=== PATIENT | female | born 1940 | race Caucasian/White ===

== ENCOUNTER → 2017-08-26 | Outpatient (CLI) | payer MEDICARE ==
--- NOTE | 2017-08-26 13:51 | MM ---
Reason for exam: screening (asymptomatic). Last mammogram was performed 1 year ago. History: Patient is postmenopausal. Benign excisional biopsy of the left breast, April 29, 1997. Took estrogen for 7 years beginning at age 59. Took progesterone for 7 years beginning at age 59. Physical Findings: A clinical breast exam by your physician is recommended on an annual basis and results should be correlated with mammographic findings. MG 3D Screening Mammo W/Cad Bilateral CC and MLO view(s) were taken. Prior study comparison: August 24, 2016, bilateral MG 3d screening mammo w/cad. August 22, 2015, bilateral MG screening mammo w CAD. August 19, 2014, bilateral MG screening mammo w CAD. There are scattered fibroglandular densities. There is no discrete abnormality. ASSESSMENT: Negative, BI-RAD 1 RECOMMENDATION: Routine screening mammogram of both breasts in 1 year.
== END | disposition home or self-care (01) ==
LOC: RADMAMWWP 09:22
PROVIDERS: ATTEND Obstetrics & Gynecology
DX: Z12.31 Encounter for screening mammogram for malignant neoplasm of breast (principal)
CPT/HCPCS: 77063; G0202

== ENCOUNTER → 2018-08-27 | Outpatient (CLI) | payer MEDICARE ==
--- NOTE | 2018-08-27 12:32 | BD ---
EXAMINATION TYPE: Axial Bone Density DATE OF EXAM: 08/27/2018 COMPARISON: 10/13/2012 CLINICAL HISTORY: 78-year-old female postmenopausal screening, disorder of bone density Height: 63.5 IN Weight: 182 LBS FRAX RISK QUESTIONS: History of Fracture in Adulthood: YES LEFT FOREARM AGE 66 RISK FACTORS HISTORY OF: Active: YES Postmenopausal woman: AGE 55 Take estrogen and/or progesterone medications: NOT NOW How long: TOOK FROM AGE [age] Lost more than 2 inches in height since high school: YES 2.5" MEDICATIONS: Additional Medications: CALCIUM, VIT D3, CENTRUM SILVER, ASCAL, HCTZ, PRULUENT INJECTION EVERY 2 WEEK S EXAM MEASUREMENTS: Bone mineral densitometry was performed using the [employer] System. Bone mineral density as measured about the Lumbar spine is: ----- L1-L4(G/cm2): 1.252 T Score Values are as follows: ----- L2: -0.8 ----- L3: 1.9 ----- L4: 1.1 ----- L1-L4: 0.6 Bone mineral density has: Increased 1.8% since study of: 10/13/2012 Bone mineral density about the R hip (g/cm2): 0.950 Bone mineral density about the L hip (g/cm2): 0.900 T Score values are as follows: -----R Neck: -0.6 -----L Neck: -1.0 -----R Total: -0.6 -----L Total: -0.5 Bone mineral density has: Decreased -6.6% since study of: 10/13/2012 IMPRESSION: Normal (Values between +1 and -1 indicate normal bone mass). However, note that measurements border o n osteopenia at the left hip. Consider repeating this study in 5 years or sooner if there is some new clinical indication. NOTE: T-SCORE=SD OF THE YOUNG ADULT MEAN.
--- NOTE | 2018-08-28 12:36 | MM ---
Reason for exam: screening (asymptomatic). Last mammogram was performed 1 year ago. History: Patient is postmenopausal. Benign excisional biopsy of the left breast, April 29, 1997. Took estrogen for 7 years beginning at age 59. Took progesterone for 7 years beginning at age 59. Physical Findings: A clinical breast exam by your physician is recommended on an annual basis and results should be correlated with mammographic findings. MG 3D Screening Mammo W/Cad Bilateral CC and MLO view(s) were taken. XCCL view(s) were taken of the right breast. Prior study comparison: August 26, 2017, bilateral MG 3d screening mammo w/cad. August 24, 2016, bilateral MG 3d screening mammo w/cad. No significant changes when compared with prior studies. ASSESSMENT: Benign, BI-RAD 2 RECOMMENDATION: Routine screening mammogram of both breasts in 1 year.
== END | disposition home or self-care (01) ==
LOC: RADMAMWWP 08:37
PROVIDERS: ATTEND Family Medicine
DX: Z12.31 Encounter for screening mammogram for malignant neoplasm of breast (principal); M85.852 Other specified disorders of bone density and structure, left thigh
CPT/HCPCS: 77063; 77067; 77080

== ENCOUNTER → 2018-09-30 | Outpatient (CLI) | payer MEDICARE ==
[2018-09-30 17:00] LABS: Albumin 4.1 g/dL (3.80-4.90); Albumin/Globulin Ratio 2.16 (1.20-2.10); Anion Gap 6.1 mmol/L (4.00-12.00); Calcium 9.5 mg/dL (8.7-10.3); Carbon Dioxide 28.9 mmol/L (21.6-31.8); Globulin 1.9 g/dL (2.1-3.7); LDL Cholesterol,Calculated 65.4 mg/dL (0.0-131.0); Potassium 4.5 mmol/L (3.5-5.5); Total Bilirubin 0.5 mg/dL (0.2-1.2); VLDL Calculation 28.6 mg/dL (5.00-40.00)
== END | disposition home or self-care (01) ==
LOC: LABWHC1 08:48
PROVIDERS: ATTEND Internal Medicine Interventional Cardiology
DX: E78.2 Mixed hyperlipidemia (principal)
CPT/HCPCS: 36415; 80053; 80061

== ENCOUNTER → 2019-09-01 | Outpatient (CLI) | payer MEDICARE ==
--- NOTE | 2019-09-01 15:57 | US ---
EXAMINATION TYPE: US transvaginal DATE OF EXAM: 09/01/2019 COMPARISON: NONE CLINICAL HISTORY: N81.4 UTERINE PROLAPSE. TECHNIQUE: Transvaginal (TV). Date of LMP: postmenopausal patient EXAM MEASUREMENTS: Uterus: 4.6 x 2.8 x 4.2 cm Endometrial Stripe: 0.2 cm Right Ovary: not visualized Left Ovary: not visualized 1. Uterus: Retroverted 2. Endometrium: wnl 3. Right Ovary: not visualized, likely due to atrophy 4. Left Ovary: not visualized, likely due to atrophy 5. Bilateral Adnexa: wnl 6. Posterior cul-de-sac: wnl Pelvic floor relaxation is seen on transvaginal imaging. IMPRESSION: Pelvic floor relaxation. Endometrial thickness is within normal limits for a postmenopaus al female. Ovaries are not seen, likely due to atrophy.
== END | disposition home or self-care (01) ==
LOC: RADUSWWP 14:58
PROVIDERS: ATTEND Obstetrics & Gynecology
DX: Z78.0 Asymptomatic menopausal state (principal)
CPT/HCPCS: 76830

== ENCOUNTER → 2019-09-15 | Outpatient (CLI) | payer MEDICARE ==
--- NOTE | 2019-09-17 10:47 | MM ---
Reason for exam: screening (asymptomatic). Last mammogram was performed 1 year and 1 month ago. History: Patient is postmenopausal. Benign excisional biopsy of the left breast, April 29, 1997. Took estrogen for 7 years beginning at age 59. Took progesterone for 7 years beginning at age 59. Physical Findings: A clinical breast exam by your physician is recommended on an annual basis and results should be correlated with mammographic findings. MG 3D Screening Mammo W/Cad Bilateral CC and MLO view(s) were taken. Prior study comparison: August 27, 2018, bilateral MG 3d screening mammo w/cad. August 26, 2017, bilateral MG 3d screening mammo w/cad. The breast tissue is heterogeneously dense. This may lower the sensitivity of mammography. No significant changes when compared with prior studies. ASSESSMENT: Benign, BI-RAD 2 RECOMMENDATION: Routine screening mammogram of both breasts in 1 year.
== END | disposition home or self-care (01) ==
LOC: RADMAMWWP 15:14
PROVIDERS: ATTEND Family Medicine
DX: Z12.31 Encounter for screening mammogram for malignant neoplasm of breast (principal)
CPT/HCPCS: 77063; 77067

== ENCOUNTER → 2019-09-29 | Outpatient (CLI) | payer MEDICARE ==
[2019-09-29 16:21] LABS: Calcium 10.4 mg/dL (8.4-10.2)
[2019-09-29 17:04] LABS: Basophils # (A) 0.1 k/uL (0-0.2); Basophils % (A) 1 %; Eosinophils # (A) 0.4 k/uL (0-0.7); Eosinophils % (A) 4 %; Lymphocytes # (A) 1.7 k/uL (1.0-4.8); Lymphocytes % (A) 16 %; MCH 30.2 pg (25.0-35.0); MCHC 31.9 g/dL (31.0-37.0); MCV 94.6 fL (80.0-100.0); Mean Platelet Volume 6.8; Monocytes # (A) 0.5 k/uL (0-1.0); Monocytes % (A) 5 %; Neutrophils # (A) 7.4 k/uL (1.3-7.7); Neutrophils % (A) 72 %; Platelet Count 337 k/uL (150-450); RBC 4.65 m/uL (3.80-5.40); RDW 13.2 % (11.5-15.5); WBC 10.3 k/uL (3.8-10.6)
== END | disposition home or self-care (01) ==
LOC: LABPAT 15:03
PROVIDERS: ATTEND Obstetrics & Gynecology
DX: Z01.818 Encounter for other preprocedural examination (principal)
CPT/HCPCS: 36415; 80048; 85025; 93005

== ENCOUNTER 2019-10-07 05:51 | Day surgery (SDC) | payer MEDICARE ==
[2019-09-30 14:56] VITALS: BMI 29.5
--- NOTE | 2019-10-06 19:34 | P.GSHP ---
History of Present Illness H&P Date: 10/06/19 79 yo female with vaginal prolapse who comes for a cystocele repair with hysterectomy by Dr Vegas and a TOT by myself for her JOSÉ MIGUEL risks complications and alternatives have been discussed. T he JOSÉ MIGUEL was noted on history. Her UDS and cysto were normal. - Constitutional Constitutional: Denies chills, Denies fever - EENT Eyes: denies blurred vision, denies pain Ears, nose, mouth and throat: Denies headache, Denies sore throat - Cardiovascular Cardiovascular: Denies chest pain, Denies shortness of breath - Respiratory Respiratory: Denies cough, Denies 7 - Gastrointestinal Gastrointestinal: Denies abdominal pain, Denies diarrhea, Denies nausea, Denies vomiting - Genitourinary (Female) Genitourinary: Denies dysuria, Denies hematuria - Genitourinary (Male) Genitourinary: Denies dysuria, Denies hematuria - Musculoskeletal Musculoskeletal: Denies myalgias - Integumentary Integumentary: Denies pruritus, Denies rash - Neurological Neurological: Denies numbness, Denies weakness - Psychiatric Psychiatric: Denies anxiety, Denies depression - Endocrine Endocrine: Denies fatigue, Denies weight change Past Medical History Past Medical History: Hyperlipidemia, Hypertension Additional Past Medical History / Comment(s): HX OF COLITIS, POLYPS, prolapsed bladder History of Any Multi-Drug Resistant Organisms: None Reported Past Surgical History: Orthopedic Surgery, Tubal Ligation Additional Past Surgical History / Comment(s): LT ARM, KAYLEN EYES CATARACT SX, Past Anesthesia/Blood Transfusion Reactions: Previous Problems w/ Anesthesia, Motion Sickness Additional Past Anesthesia/Blood Transfusion Reaction / Comment(s): slow to wake after anesthesia Smoking Status: Never smoker - Past Family History Mother Family Medical History: No Reported History Medications and Allergies Home Medications Medication Instructions Recorded Confirmed Type Hydrochlorothiazide [Hydrodiuril] 25 mg PO HS 06/03/14 09/30/19 History Aspirin [Adult Low Dose Aspirin EC] 81 mg PO DAILY 09/02/17 09/30/19 History Fish Oil/Dha/Epa [Fish Oil 1,200 1 each PO DAILY 09/02/17 09/30/19 History mg Fish Oil] Mesalamine [Asacol Hd] 800 mg PO DAILY 09/02/17 09/30/19 History Multivitamins, Thera [Multivitamin 1 tab PO DAILY 09/02/17 09/30/19 History (formulary)] Evolocumab [Repatha Syringe] 140 mg SQ Q14D 09/30/19 09/30/19 History Allergies Allergy/AdvReac Type Severity Reaction Status Date / Time codeine Allergy Confusion Verified 09/30/19 14:42 Penicillins Allergy Unknown Verified 09/30/19 14:42 Childhood Jpcfxpn-Ngh-Zne Reductase Allergy Unknown Verified 09/30/19 14:42 Inhibitor Surgical - Exam - General well nourished, no distress - Eyes PERRL - ENT no hearing loss - Neck trachea midline - Respiratory normal expansion, normal respiratory effort - Cardiovascular Rhythm: regular - Abdomen Abdomen: soft, non tender - Genitourinary vaginal prolapse [cystocele] with a hypermobile urethra - Integumentary no rash, no growths - Neurologic normal coordination, normal sensation - Musculoskeletal normal gait, normal posture - Psychiatric oriented to time, oriented to person, oriented to place, speech is normal, memory intact Assessment and Plan Assessment: impression: JOSÉ MIGUEL with a cystocele PlaN; TOT
--- NOTE | 2019-10-06 20:33 | P.HPOB ---
History of Present Illness H&P Date: 10/06/19 Chief Complaint: Cystocele with uterine prolapse This is a 79 y.o. female, gravid 3, para 3, who presents for total abdominal hysterectomy with anterior vaginal repair and transobturator sling to be performed by Dr. Cam for urinary stress incontinence. She complainse of va ginal pressure and mass along with urinary incontinence. She also has frequent urinary tract infections. Symptoms worsen following heavy liftig, coughin, and any activity. OB Hx: . Hx of 3 vaginal deliveries. [employer] Hx: No hx of STDs. Social Hx: Marries. Retired. Review of Systems Constitutional: Reports night sweats, Denies chills, Denies fever Eyes: denies blurred vision, denies pain Ears, nose, mouth and throat: Denies headache, Denies sore throat Cardiovascular: Denies chest pain, Denies shortness of breath Respiratory: Denies cough Gastrointestinal: Reports abdominal pain (occ. with colitis flares), Reports diarrhea (occ) Genitourinary: Reports prolapse symptoms, Reports stress incontinence, Reports urgency Menstruation: Reports postmenopausal Musculoskeletal: Denies myalgias Integumentary: Denies pruritus, Denies rash Neurological: Denies numbness, Denies weakness Psychiatric: Denies anxiety, Denies depression Endocrine: Denies fatigue, Denies weight change Past Medical History Past Medical History: Hyperlipidemia, Hypertension Additional Past Medical History / Comment(s): HX OF COLITIS, POLYPS, prolapsed bladder History of Any Multi-Drug Resistant Organisms: None Reported Past Surgical History: Adenoidectomy, Orthopedic Surgery, Tonsillectomy, Tubal Ligation Additional Past Surgical History / Comment(s): LT ARM, right foot bunion surgery, KAYLEN EYES CATARACT SX, D&C Past Anesthesia/Blood Transfusion Reactions: Previous Problems w/ Anesthesia, Motion Sickness Additional Past Anesthesia/Blood Transfusion Reaction / Comment(s): slow to wake after anesthesia Past Psychological History: No Psychological Hx Reported Smoking Status: Never smoker Past Alcohol Use History: Occasional Past Drug Use History: None Reported - Past Family History Mother Family Medical History: No Reported History Medications and Allergies Home Medications Medication Instructions Recorded Confirmed Type Hydrochlorothiazide [Hydrodiuril] 25 mg PO HS 06/03/14 09/30/19 History Aspirin [Adult Low Dose Aspirin EC] 81 mg PO DAILY 09/02/17 09/30/19 History Fish Oil/Dha/Epa [Fish Oil 1,200 1 each PO DAILY 09/02/17 09/30/19 History mg Fish Oil] Mesalamine [Asacol Hd] 800 mg PO DAILY 09/02/17 09/30/19 History Multivitamins, Thera [Multivitamin 1 tab PO DAILY 09/02/17 09/30/19 History (formulary)] Evolocumab [Repatha Syringe] 140 mg SQ Q14D 09/30/19 09/30/19 History Allergies Allergy/AdvReac Type Severity Reaction Status Date / Time codeine Allergy Confusion Verified 09/30/19 14:42 Penicillins Allergy Unknown Verified 09/30/19 14:42 Childhood Vvidvpk-Fqg-Tzp Reductase Allergy Unknown Verified 09/30/19 14:42 Inhibitor Exam Osteopathic Statement: *. No significant issues noted on an osteopathic structural exam other than those noted in the History and Physical/Consult. HEENT: Within normal limits Heart: Regular rate and rhythm Lungs: Clear to auscultation bilaterally Abdomen: Soft, nontender Pelvic exam: Uterus is anteverted, nontender, with no adnexal masses or tenderness palpated. There is grade 3 cystocele and grade 2 rectocele along with grade 3 uterine prolapse. Rectal exam: External hemorrhoids are noted. Assessment and Plan (1) Cystocele with uterine prolapse Status: Acute Code(s): N81.4 - UTEROVAGINAL PROLAPSE, UNSPECIFIED SNOMED Code(s): 062803270 (2) JOSÉ MIGUEL (stress urinary incontinence, female) Status: Acute Code(s): N39.3 - STRESS INCONTINENCE (FEMALE) (MALE) SNOMED Code(s): 35081339 Plan: Proceed with total vaginal hysterectomy with anterior and posterior vaginal rep air along with trans-obturator sling to be performed by Dr. Cam. I have discussed the risks, benefits, and alternative therapies for the above- mentioned procedure and for both sedation/anesthesia as well as necessary blood products administration, if indicated, as they pertain to this patient. The patient has indicated her understanding and acceptance of the risks and procedures discussed.
[2019-10-07] MEDS ORDERED: LIDOCAINE 1% 20 ML VIAL (10MG/ML) FOR IV START INTRADERMA PRN (05:54)
[2019-10-07] MEDS ORDERED: ONDANSETRON 4 MG/2 ML VIAL IVP ONE (05:54)
[2019-10-07] MEDS ORDERED: SCOPOLAMINE 1.5MG/72HR PATCH TRANSDERM ONE (05:54)
[2019-10-07] MEDS ORDERED: HYDROmorphone 0.5 MG/0.5 ML SYRINGE IVP PRN (05:54)
[2019-10-07] MEDS ORDERED: DEXAMETHASONE SOD PHOSPHATE 10 MG/ML 1 ML VIAL IV ONE (05:54)
[2019-10-07] MEDS ORDERED: MIDAZOLAM 2 MG/2 ML VIAL IV PRN (05:54)
[2019-10-07] MEDS: LACTATED RINGERS 1,000 ML IV SCH (06:41)
[2019-10-07] MEDS ORDERED: KETOROLAC 30 MG/ML 1 ML VIAL ONE (07:24)
[2019-10-07] MEDS ORDERED: GLYCOPYRROLATE 0.2 MG/ML 2 ML VIAL ONE (07:24)
[2019-10-07] MEDS ORDERED: MIDAZOLAM 2 MG/2 ML VIAL ONE (07:24)
[2019-10-07] MEDS ORDERED: fentaNYL (PF) 50 MCG/ML 2 ML AMP ONE (07:24)
[2019-10-07] MEDS ORDERED: PROPOFOL 10 MG/ML 20 ML VIAL IV ONE (07:24)
[2019-10-07] MEDS ORDERED: CLINDAMYCIN 150 MG/ML 4 ML VIAL ONE (07:24)
[2019-10-07] MEDS ORDERED: MORPHINE SULFATE (PF) 0.3 MG/0.3 ML SYR ONE (07:24)
[2019-10-07] MEDS ORDERED: ACETAMINOPHEN IV (For NPO) 1,000 MG/100 ML VIAL ONE (07:24)
[2019-10-07] MEDS ORDERED: diphenhydrAMINE 50 MG/ML 1 ML VIAL ONE (07:24)
[2019-10-07] MEDS ORDERED: PHENYLEPHRINE-0.9% NACL SYG 1 MG/10 ML SYRINGE ONE (07:24)
[2019-10-07] MEDS ORDERED: SODIUM CHLORIDE 0.9% 50 ML with CLINDAMYCIN 900 MG IV ONE ×2 (07:45)
[2019-10-07] MEDS ORDERED: EPINEPHrine 1 MG/ML 1 ML AMP SQ ONE (08:01)
[2019-10-07] MEDS ORDERED: GENTAMICIN IN NACL ISO-OSM PMX 80 MG/100 ML BAG IV ONE (08:34)
[2019-10-07] MEDS ORDERED: LACTATED RINGERS 1,000 ML IV ONE ×2 (08:36)
--- NOTE | 2019-10-07 09:18 | P.OP ---
Date of Procedure: 10/07/19 Preoperative Diagnosis: Uterine prolapse with cystocele and rectocele along with stress urinary incontinence Postoperative Diagnosis: Same Procedure(s) Performed: Total vaginal hysterectomy with anterior and posterior vaginal colporrhaphy Drains obturator sling performed by Dr. Cam Anesthesia: spinal (Duramorph) Surgeon: Yareli Vegas (Dr. Cam performed transobturator sling) Hyperion Analyst #1: Ramya Akins Estimated Blood Loss (ml): 50 Pathology: other (Uterus with cervix and vaginal mucosa) Condition: stable Disposition: floor Indications for Procedure: This is a 79 y.o. female, gravid 3, para 3, who presents for total vaginal hysterectomy with anterior and posterior vaginal repair and transobturator sling to be performed by Dr. Cam for urinary stress incontinence. She complains of vaginal pressure and mass along with urinary incontinence. She also has frequent urinary tract infections. Symptoms worsen following heavy liftig, coughin, and any activity. Operative Findings: Uterus has grade 2 prolapse. Grade 3 cystocele is noted. Grade 2 rectocele is noted. Neither ovary is visualized. Description of Procedure: The patient is taken the operating room where she is placed in the dorsal lithotomy position. She is prepped and draped in the normal sterile fashion. Next a weighted speculum was placed in the patient's vagina and a right angle retractor was used to visualize the cervix. The anterior lip of the cervix is grasped with a single-tooth tenaculum. Next the cervix was circumferentially injected with one amp of epinephrine to 150 mL of normal saline. Next the cer vix was circumscribed with a scalpel. The vaginal mucosa was pushed away from the cervix with a sponge. Next the uterosacral ligaments are clamped on either side with a Jameel clamp, cut with Miranda scissors, and then sutured with 0 Vicryl suture in a Jameel transfixion stitch and then held on either side with a straight hemostat. Next the posterior peritoneal reflection was identified and entered sharply with Miranda scissors. The edges of the vaginal mucosa was then tagged with 0 Vicryl suture and held with a curved hemostat for identification. Next a longbilled weighted speculum was placed through the posterior peritoneal reflection. Next the cardinal ligaments were clamped on either side with Jameel clamps, cut with Miranda scissors, and then sutured with 0 Vicryl suture in Jameel transfixion stitches and cut. Next the vesicouterine peritoneum reflection is identified and entered sharply with Metzenbaum scissors. A right angle bladder retractor is then used to retract the bladder. The uterine arteries are clamped on either side with Jameel clamps, cut with Miranda scissors, and then sutured with 0 Vicryl suture in Jameel transfixion stitches. The round ligament is also clamped on either side with a Jameel clamp, cut with Miranda scissors, and sutured with 0 Vicryl suture in Jameel transfixion stitches. Next the uterine ovarian ligament and tube were clamped on either side with a Jameel clamp, cut with Miranda scissors, and then sutured with 0 Vicryl suture in a qykobh-zo-pzody stitch, flashed, and then free tied with another suture of 0 Vicryl suture. These pedicles were held with a straight Rosalinda for identification. The uterus is removed from the field. Excellent hemostasis is noted. Next the peritoneum is closed with 0 Vicryl suture in a pursestring fashion incorporating all the held ligaments. Again neither ovary was visualized prior to closing the vaginal cuff area. Next the uterine ovarian ligaments are tied together in the middle and cut. Next attention was turned to the cystocele repair. The edges of the vaginal mucosa are held with 2 Allis clamps. Next injection of the same epinephrine solution is injected underneath the mucosa upwards towards the urethra. Metzenbaum scissors were used to dissect underneath the vaginal mucosa and cut along the way up to just below the urethra. Sharp and blunt dissection are used to dissect the bladder away from the vaginal mucosa. Once the bladder is freed, the cystocele is reduced with 0 Vicryl suture in [id number] stitches on either side of the cystocele. Dr. Cam performed the transvaginal obturator sling at this point. He also performed cystoscopy and Regalado catheter insertion. Next the edges of the vaginal mucosa are trimmed with Metzenbaum scissors. Next the vaginal mucosa is sutured with 0 Vicryl suture in a running locked fashion incorporating the vaginal cuff. The uterosacral ligaments were also tied together in the midline prior to completely closing the vaginal cuff. Excellent hemostasis is noted. Attention is then turned to the posterior repair. 2 Allis clamps are used to grasp the introitus at the 4 and 8 o'clock position. Next injection of the same epinephrine solution is injected underneath the vaginal mucosa upwards towards cut. A small triangle her piece of vaginal mucosa is removed on the perineum with a scalpel. Next Metzenbaum scissors are used to dissect underneath the vaginal mucosa upwards towards the cuff. Edges of the vaginal mucosa are held with Allis clamps. Next the vaginal mucosa is dissected away from the rectocele with sharp and blunt dissection. Next the rectocele is reduced with 0 Vicryl suture in interrupted vyvyll-ee-druqh stitches. Next the vaginal mucosa is trimmed. Next the vaginal mucosa is sutured with 0 Vicryl suture in a running locked fashion up to the introitus and then brought underneath the tissue and whipstitched in a running fashion up to the apex. Is then brought to the skin and sutured in a subcapsular fashion up to the introitus and tied. Good hemostasis is noted. Next the vagina is packed with one-inch iodoform gauze with bacitracin ointment. All sponge and needle counts are correct and the patient is then taken to recovery room in stable condition.
--- NOTE | 2019-10-07 09:20 | P.OP ---
Date of Procedure: 10/07/19 Preoperative Diagnosis: Stress urinary incontinence Postoperative Diagnosis: Stress urinary incontinence Procedure(s) Performed: Trans-obturator tape with cystoscopy Anesthesia: SHAKIRA Surgeon: Jarvis Cam Estimated Blood Loss (ml): 50 Pathology: none sent Condition: stable Disposition: PACU Indications for Procedure: Patient is 79. She has vaginal prolapse. She also has stress incontinence. She comes for vaginal hysterectomy with AP repair by Dr. Vegas and trans- obturator tape with cystoscopy by myself Description of Procedure: The patient was brought to the operating suite and given a successful general endotracheal anesthesia. She was placed in lithotomy position with sterile prep and drape. Dr. Vegas does a vaginal hysterectomy and opens the anterior vaginal mucosa for an anterior repair. I then ended the procedure. The Regalado catheter is placed in the bladder strain. I make sure that I can dissect lateral the bladder neck bilaterally with the open vaginal mucosa by Dr. Vegas. They make 2 incisions in the inguinal crease at the level clitoris. I passed the obturator introducers incisions through the obturator foramen into the vaginal space bilaterally making sure not to buttonhole the vagina. I then remove the Regalado and perform cystoscopy. There is no evidence of injury with the vaginal introducers. I then replaced the Regalado. I then attached the graft to the obturator introducers and pull the graft back through the inguinal incision bilaterally. The graft lay in the mid urethra nicely. Dr. Vegas then proceeds and finishes anterior. As the posterior repair. I closed the inguinal incisions after removing the redundant sheathing and graft. This is done with 4-0 Vicryl. Vaginal packing is placed. Catheter will remain in 48 hours.
[2019-10-07] MEDS ORDERED: METOCLOPRAMIDE 5 MG/ML 2 ML VIAL IVP PRN (10:28)
[2019-10-07] MEDS ORDERED: ONDANSETRON 4 MG/2 ML VIAL IVP PRN (10:28)
[2019-10-07] MEDS ORDERED: diphenhydrAMINE 50 MG/ML 1 ML VIAL IVP PRN (10:28)
[2019-10-07] MEDS ORDERED: SIMETHICONE 80 MG CHEWABLE PO PRN (10:28)
[2019-10-07] MEDS ORDERED: ZOLPIDEM 5 MG TAB PO PRN (10:28)
[2019-10-07] MEDS ORDERED: KETOROLAC 30 MG/ML 1 ML VIAL IVP PRN (10:28)
[2019-10-07] MEDS: BALSALAZIDE DISODIUM 750 MG CAPSULE PO SCH (11:07)
[2019-10-07] MEDS: SENNOSIDES-DOCUSATE SODIUM 1 EACH TAB PO SCH ×2 (11:07→20:29)
[2019-10-07] MEDS ORDERED: NALOXONE 0.4 MG/ML 1 ML VIAL IV PRN (11:34)
[2019-10-07] MEDS: HYDROCHLOROTHIAZIDE 25 MG TAB PO SCH (20:29)
[2019-10-08] MEDS ORDERED: ACETAMINOPHEN TAB 325 MG TAB PO PRN (07:45)
--- NOTE | 2019-10-08 07:46 | P.PN ---
Progress Note - Text 10/08 710am 79-year-old female status post vaginal hysterectomy. Patient had a spinal anesthetic with Duramorph for postop pain control. Patient seen and evaluated this morning with a VAS of 4 with no complaints of nausea vomiting or pruritus. Patient to follow-up with her [employer] surgeon for postop pain control
[2019-10-08] MEDS: LACTATED RINGERS 1,000 ML IV SCH (08:30)
--- NOTE | 2019-10-08 08:38 | P.PN ---
Subjective Progress Note Date: 10/08/19 Principal diagnosis: Status post total vaginal hysterectomy with anterior and posterior vaginal colporrhaphy and sling performed by Dr. Cam postoperative day #1 Patient is doing well. She has ambulated a little bit. Bleeding has been minimal. She is passing flatus but no bowel movement yet. Her pain is fairly well controlled with the Toradol and Duramorph. Objective - Vital Signs Vital signs: Vital Signs Temp 97.6 F 10/08/19 05:37 Pulse 60 10/08/19 05:37 Resp 16 10/08/19 05:37 BP 106/56 10/08/19 05:37 Pulse Ox 96 10/08/19 05:37 Intake & Output 10/07/19 10/08/19 10/08/19 18:59 06:59 18:59 Intake Total 1456 Output Total 1000 1150 Balance 456 -1150 Intake: IV 1456 Output: Urine 950 1150 Estimated Blood Loss 50 Other: Voiding Method Indwelling Catheter Indwelling Catheter - Constitutional General appearance: Present: no acute distress - Gastrointestinal General gastrointestinal: Present: normal bowel sounds - Genitourinary Genitourinary Comment(s): Peripads shows scant serosanguineous discharge Assessment and Plan Assessment: Status post total vaginal hysterectomy with A&P repair and sling postoperative day #1 (1) Cystocele with uterine prolapse Current Visit: No Status: Acute Code(s): N81.4 - UTEROVAGINAL PROLAPSE, UNSPECIFIED SNOMED Code(s): 880221624 (2) JOSÉ MIGUEL (stress urinary incontinence, female) Current Visit: No Status: Acute Code(s): N39.3 - STRESS INCONTINENCE (FEMALE) (MALE) SNOMED Code(s): 10409127 Plan: Will continue with ambulation today. Will Hep-Lock IV and continue with Toradol and Tylenol for pain control. Patient is encouraged to ambulate. We'll remove Regalado catheter tomorrow per Dr. Cam.
[2019-10-08 08:40] LABS: Basophils % (A) 0 %; Eosinophils # (A) 0.1 k/uL (0-0.7); Eosinophils % (A) 1 %; HCT 38.5 % (34.0-46.0); HGB 12.9 gm/dL (11.4-16.0); Lymphocytes # (A) 1.6 k/uL (1.0-4.8); Lymphocytes % (A) 14 %; MCHC 33.6 g/dL (31.0-37.0); MCV 95.2 fL (80.0-100.0); Monocytes # (A) 0.7 k/uL (0-1.0); Monocytes % (A) 7 %; Neutrophils # (A) 8.5 k/uL (1.3-7.7); Neutrophils % (A) 77 %; Platelet Count 332 k/uL (150-450); RBC 4.05 m/uL (3.80-5.40); RDW 13.1 % (11.5-15.5); WBC 11.1 k/uL (3.8-10.6)
[2019-10-08] MEDS: SENNOSIDES-DOCUSATE SODIUM 1 EACH TAB PO SCH ×2 (09:23→21:23)
[2019-10-08] MEDS: BALSALAZIDE DISODIUM 750 MG CAPSULE PO SCH (09:24)
--- NOTE | 2019-10-08 12:35 | P.PN ---
Subjective Progress Note Date: 10/08/19 The patient is in her first postoperative day from a vaginal hysterectomy, AP repair by Dr. Vegas on a trans-obturator tape by myself. Her urine is clear. The packing was removed. Her abdomen is soft. I will remove her Regalado catheter in the morning. If she voids without difficulty from a urologic standpoint she can be discharged home. She understands this. Objective - Vital Signs Vital signs: Vital Signs Temp 97.9 F 10/08/19 08:55 Pulse 80 10/08/19 08:55 Resp 13 10/08/19 08:55 BP 133/63 10/08/19 08:55 Pulse Ox 95 10/08/19 08:55 Intake & Output 10/07/19 10/08/19 10/08/19 18:59 06:59 18:59 Intake Total 1456 Output Total 1000 1150 400 Balance 456 -1150 -400 Intake: IV 1456 Output: Urine 950 1150 400 Estimated Blood Loss 50 Other: Voiding Method Indwelling Catheter Indwelling Catheter Indwelling Catheter - Labs CBC & Chem 7: 10/08/19 07:47 Labs: Abnormal Lab Results - Last 24 Hours (Table) 10/08/19 Range/Units 07:47 WBC 11.1 H (3.8-10.6) k/uL Neutrophils # 8.5 H (1.3-7.7) k/uL
[2019-10-08] MEDS: HYDROCHLOROTHIAZIDE 25 MG TAB PO SCH (21:23)
[2019-10-09] MEDS: LACTATED RINGERS 1,000 ML IV SCH (05:45)
--- NOTE | 2019-10-09 07:23 | P.PN ---
Subjective Progress Note Date: 10/09/19 The patient's in her second postoperative day from a vaginal hysterectomy AP repair and TOT. She feels well. Her urine is clear. I will remove her Regalado catheter this morning. If she voids without problems she can be discharged home from a urologic standpoint. I will see her in the office in one week. Objective - Vital Signs Vital signs: Vital Signs Temp 96.9 F L 10/09/19 05:00 Pulse 82 10/09/19 05:00 Resp 18 10/09/19 05:00 BP 148/72 10/09/19 05:00 Pulse Ox 95 10/09/19 05:00 Intake & Output 10/08/19 10/09/19 10/09/19 18:59 06:59 18:59 Intake Total 1460 Output Total 1100 3200 Balance -1100 -1740 Intake: Intake, IV Titration 560 Amount Lactated Ringers 1,000 ml 160 @ 20 mls/hr IV .Q24H [facility] Rx#:[id number] Sodium Chloride 0.9% 50 400 ml @ 0 mls/hr IV .STK-MED ONE with Clindamycin 900 mg Rx#:[id number] Oral 900 Output: Urine 1100 3200 Other: Voiding Method Indwelling Catheter Indwelling Catheter - Labs CBC & Chem 7: 10/08/19 07:47 Labs: Abnormal Lab Results - Last 24 Hours (Table) 10/08/19 Range/Units 07:47 WBC 11.1 H (3.8-10.6) k/uL Neutrophils # 8.5 H (1.3-7.7) k/uL
[2019-10-09] MEDS: BALSALAZIDE DISODIUM 750 MG CAPSULE PO SCH (07:55)
[2019-10-09] MEDS: SENNOSIDES-DOCUSATE SODIUM 1 EACH TAB PO SCH (07:56)
[2019-10-09 08:46] VITALS: BP 137/71; PULSE 77; RESP 12; TEMP 98.3
--- NOTE | 2019-10-09 08:47 | P.DS ---
Providers Date of admission: 10/07/2019 Expected date of discharge: 10/09/19 Attending physician: Yareli Vegas Primary care physician: Ar Camilo - Discharge Diagnosis(es) (1) Cystocele with uterine prolapse Current Visit: Yes Status: Acute (2) JOSÉ MIGUEL (stress urinary incontinence, female) Current Visit: No Status: Acute Hospital Course: This is a 79-year-old female who underwent a total vaginal hysterectomy with anterior and posterior vaginal colporrhaphy along with a Melara's obturator sling performed by Dr. Anthony on 10/07/2019. Postoperatively she has done well. She is passing flatus but no bowel movement yet. Her catheter was just removed this morning. She is not urinated yet. She will do bladder training today. As long as she is urinating well with low postvoid residuals, she will go home today. Her pain is been fairly well-controlled. She has been using Tylenol and some Toradol for pain control. She will be given a prescription for ibuprofen to use sparingly as needed. She is advised limited activity upon discharge. She may shower but no tub baths. No heavy lifting. She is advised follow-up in my office in approximately 1 week for a postoperative check and she also is to follow-up with Dr. Anthony. She is advised to call the office if she has any further questions or concerns prior to her appointment time. Procedures: Total vaginal hysterectomy with anterior and posterior colporrhaphy and trans- obturator sling Patient Condition at Discharge: Stable Plan - Discharge Summary Discharge Rx Participant: No New Discharge Prescriptions: New Ibuprofen [Motrin] 600 mg PO Q6HR PRN #30 tab PRN Reason: Pain Acetaminophen Tab [Tylenol] 650 mg PO Q6HR PRN tab PRN Reason: Fever And/Or Mild Pain No Action Hydrochlorothiazide [Hydrodiuril] 25 mg PO HS Mesalamine [Asacol Hd] 800 mg PO DAILY Fish Oil/Dha/Epa [Fish Oil 1,200 mg Fish Oil] 1 each PO DAILY Multivitamins, Thera [Multivitamin (formulary)] 1 tab PO DAILY Aspirin [Adult Low Dose Aspirin EC] 81 mg PO DAILY Evolocumab [Repatha Syringe] 140 mg SQ Q14D Discharge Medication List Hydrochlorothiazide [Hydrodiuril] 25 mg PO HS 06/03/14 [History] Aspirin [Adult Low Dose Aspirin EC] 81 mg PO DAILY 09/02/17 [History] Fish Oil/Dha/Epa [Fish Oil 1,200 mg Fish Oil] 1 each PO DAILY 09/02/17 [History] Mesalamine [Asacol Hd] 800 mg PO DAILY 09/02/17 [History] Multivitamins, Thera [Multivitamin (formulary)] 1 tab PO DAILY 09/02/17 [History] Evolocumab [Repatha Syringe] 140 mg SQ Q14D 09/30/19 [History] Acetaminophen Tab [Tylenol] 650 mg PO Q6HR PRN tab 10/09/19 [Rx] Ibuprofen [Motrin] 600 mg PO Q6HR PRN #30 tab 10/09/19 [Rx] Follow up Appointment(s)/Referral(s): Jarvis Cam MD [STAFF PHYSICIAN] - 1 Week Yareli Vegas DO [Doctor of Osteopathic Medicine] - 1 Week Activity/Diet/Wound Care/Special Instructions: Activity as tolerated. Diet as tolerated. May shower, but no tub baths. No heavy lifting. Discharge Disposition: HOME SELF-CARE
[2019-10-09] MEDS ORDERED: diphenhydrAMINE 25 MG CAP PO PRN (11:31)
[2019-10-14] MEDS ORDERED: EVOLOCUMAB 140 MG SQ SCH (09:00)
== END 2019-10-09 12:57 | disposition home or self-care (01) ==
LOC: OR 05:51 → EDSTATUS 07:30 → 4MS4W 09:11 → OR 10-09 12:57
PROVIDERS: ATTEND Obstetrics & Gynecology
DX: N81.4 Uterovaginal prolapse, unspecified (principal); N39.3 Stress incontinence (female) (male); E78.5 Hyperlipidemia, unspecified; I10 Essential (primary) hypertension; K52.9 Noninfective gastroenteritis and colitis, unspecified; Z98.51 Tubal ligation status; Z98.49 Cataract extraction status, unspecified eye; Z79.82 Long term (current) use of aspirin; Z79.899 Other long term (current) drug therapy; Z88.5 Allergy status to narcotic agent; Z88.0 Allergy status to penicillin; Z88.8 Allergy status to other drugs, medicaments and biological substances
CPT/HCPCS: 86900; 86901; 85025; 86850; 88307; 88302; 58260; 57260; 57288; C1769; C1771; J1580; J2250; J0171; J1200; J1100; J2405; J1885

== ENCOUNTER → 2020-05-03 | Outpatient (CLI) | payer MEDICARE ==
[2020-05-03 17:21] LABS: African American GFR (CKD) 95.5 (60.0-200.0); Albumin 4.2 g/dL (3.80-4.90); BUN/Creat Ratio 22.86 Ratio (12.00-20.00); Calcium 9.6 mg/dL (8.7-10.3); Chol/HDL Ratio 2.48; Globulin 2.1 g/dL (1.6-3.3); LDL Cholesterol,Calculated 64.8 mg/dL (0.0-131.0); Non-African American GFR(CKD) 82.4 (60.0-200.0); Potassium 4.1 mmol/L (3.5-5.5); Total Bilirubin 0.5 mg/dL (0.2-1.2); Total Protein 6.3 g/dL (6.2-8.2); VLDL Calculation 27.2 mg/dL (5.00-40.00)
== END | disposition home or self-care (01) ==
LOC: LABWHC1 08:50
PROVIDERS: ATTEND Nurse Practitioner Adult Health
DX: E78.2 Mixed hyperlipidemia (principal); I10 Essential (primary) hypertension
CPT/HCPCS: 36415; 80053; 80061

== ENCOUNTER 2020-07-08 09:51 | Day surgery (SDC) | payer MEDICARE ==
[2020-07-06 14:32] VITALS: BMI 29.5
[~2020-07-08 09:51] MED LIST: LACTATED RINGERS 1,000 ML IV SCH; LIDOCAINE 1% (10MG/ML) FOR IV START INTRADERMA PRN
[2020-07-08 10:40] VITALS: TEMP 98.1
[2020-07-08 10:44] LABS: Glucose,Whole Blood 92 mg/dL (75-99)
[2020-07-08] MEDS ORDERED: PROPOFOL 10 MG/ML 20 ML VIAL IV ONE (11:28)
--- NOTE | 2020-07-08 11:46 | P.PCN ---
Date of Procedure: 07/08/20 Procedure(s) Performed: BRIEF HISTORY: Patient is a 80-year-old pleasant white female scheduled for an elective colonoscopy as a part of evaluation long-standing history of ulcerative colitis ( proctosigmoiditis) diagnosed in 1995. He remains in clinical remission. . PROCEDURE PERFORMED: Colonoscopy with biopsy. PREOPERATIVE DIAGNOSIS: Long-standing history of ulcerative colitis. IV sedation per Anesthesia. PROCEDURE: After informed consent was obtained, the patient, was brought into the endoscopy unit. IV sedation was administered by Anesthesia under continuous monitoring. Digital rectal examination was normal. Initially the Olympus CF-160 flexible video colonoscope was then inserted in the rectum, gradually advanced into the cecum without any difficulty. Careful examination was performed as the scope was gradually being withdrawn. Ileocecal valve and the appendiceal orifice were visualized and appeared normal. Prep was excellent. Mucosa of the cecum, ascending colon, appeared normal. There was a 2 mm polyp in the transverse colon that was removed by cold biopsy. Rest of the transverse colon, descending colon, sigmoid colon, and rectum appeared normal. Random biopsies were done from the rectum to cecum at every 10 cm intervals to rule out dysplasia. Retroflexion was performed in the rectum and no lesions were seen. The patient tolerated the procedure well. IMPRESSION: Normal-appearing colon from rectum to cecum with no evidence of active colitis. 2 mm transverse colon polyp status post removal by cold biopsy Scattered left-sided diverticulosis RECOMMENDATIONS: Findings of this examination were discussed with the patient well as her family. She was advised to follow with the biopsies. She can have a repeat colonoscopy in 2 years from now.
[2020-07-08 11:49] VITALS: RESP 17
[2020-07-08 12:00] VITALS: BP 108/65; PULSE 68
== END 2020-07-08 12:27 | disposition home or self-care (01) ==
LOC: ORWHC2ENDO 09:51
PROVIDERS: ATTEND Internal Medicine Gastroenterology
DX: D12.2 Benign neoplasm of ascending colon (principal); K51.30 Ulcerative (chronic) rectosigmoiditis without complications; K57.30 Diverticulosis of large intestine without perforation or abscess without bleeding; I10 Essential (primary) hypertension; Z79.1 Long term (current) use of non-steroidal anti-inflammatories (NSAID); Z79.899 Other long term (current) drug therapy; Z79.82 Long term (current) use of aspirin; Z88.5 Allergy status to narcotic agent; Z88.8 Allergy status to other drugs, medicaments and biological substances; Z88.0 Allergy status to penicillin; Z98.890 Other specified postprocedural states; Z98.51 Tubal ligation status; Z90.710 Acquired absence of both cervix and uterus; Z87.898 Personal history of other specified conditions; Z91.89 Other specified personal risk factors, not elsewhere classified
CPT/HCPCS: 88305; 45380; J2704

== ENCOUNTER → 2020-09-30 | Outpatient (CLI) | payer MEDICARE ==
--- NOTE | 2020-10-03 12:08 | MM ---
Reason for exam: screening (asymptomatic). Last mammogram was performed 1 year ago. History: Patient is postmenopausal. Benign excisional biopsy of the left breast, April 29, 1997. Took estrogen for 7 years beginning at age 59. Took progesterone for 7 years beginning at age 59. Physical Findings: A clinical breast exam by your physician is recommended on an annual basis and results should be correlated with mammographic findings. MG 3D Screening Mammo W/Cad Bilateral CC and MLO view(s) were taken. Prior study comparison: September 15, 2019, bilateral MG 3d screening mammo w/cad. August 27, 2018, bilateral MG 3d screening mammo w/cad. There are scattered fibroglandular densities. There are benign appearing round calcifications in the left breast. There is no discrete abnormality. ASSESSMENT: Benign, BI-RAD 2 RECOMMENDATION: Routine screening mammogram of both breasts in 1 year.
== END | disposition home or self-care (01) ==
LOC: RADMAMWWP 13:13
PROVIDERS: ATTEND Obstetrics & Gynecology
DX: Z12.31 Encounter for screening mammogram for malignant neoplasm of breast (principal)
CPT/HCPCS: 77063; 77067

== ENCOUNTER → 2021-10-06 | Outpatient (CLI) | payer MEDICARE ==
[2021-10-06 16:10] LABS: ALT 37 U/L (8-44); AST 18 U/L (13-35); African American GFR (CKD) 90.5 (60.0-200.0); Albumin 4.1 g/dL (3.8-4.9); Albumin/Globulin Ratio 1.97 (1.60-3.17); Alkaline Phosphatase 75 U/L (41-126); BUN/Creat Ratio 25.41 Ratio (12.00-20.00); Blood Urea Nitrogen 18.5 mg/dL (9.0-27.0); Carbon Dioxide 27.4 mmol/L (21.6-31.8); Chloride 102 mmol/L (96-109); Chol/HDL Ratio 2.63 Ratio; Globulin 2.1 g/dL (1.6-3.3); Glucose 115 mg/dL (70-110); LDL Cholesterol,Calculated 80.5 mg/dL (0.0-131.0); Potassium 4.6 mmol/L (3.5-5.5); Sodium 141 mmol/L (135-145); Total Protein 6.2 g/dL (6.2-8.2)
== END | disposition home or self-care (01) ==
LOC: LABWHC1 08:08
PROVIDERS: ATTEND Internal Medicine Interventional Cardiology
DX: E78.2 Mixed hyperlipidemia (principal)
CPT/HCPCS: 36415; 80053; 80061

== ENCOUNTER → 2021-11-16 | Outpatient (CLI) | payer MEDICARE ==
--- NOTE | 2021-11-20 13:57 | MM ---
Reason for exam: screening (asymptomatic). Last mammogram was performed 1 year and 2 months ago. History: Patient is postmenopausal. Benign excisional biopsy of the left breast, April 29, 1997. Took estrogen for 7 years beginning at age 59. Took progesterone for 7 years beginning at age 59. Physical Findings: A clinical breast exam by your physician is recommended on an annual basis and results should be correlated with mammographic findings. MG 3D Screening Mammo W/Cad Bilateral CC and MLO view(s) were taken. Prior study comparison: September 30, 2020, bilateral MG 3d screening mammo w/cad. September 15, 2019, bilateral MG 3d screening mammo w/cad. There are scattered fibroglandular densities. There is no discrete abnormality. ASSESSMENT: Negative, BI-RAD 1 RECOMMENDATION: Routine screening mammogram of both breasts in 1 year.
== END | disposition home or self-care (01) ==
LOC: RADMAMWWP 10:53
PROVIDERS: ATTEND Family Medicine
DX: Z12.31 Encounter for screening mammogram for malignant neoplasm of breast (principal); Z78.0 Asymptomatic menopausal state
CPT/HCPCS: 77063; 77067

== ENCOUNTER → 2022-11-21 | Outpatient (CLI) | payer MEDICARE ==
--- NOTE | 2022-11-21 13:11 | BD ---
EXAMINATION TYPE: Axial Bone Density DATE OF EXAM: 11/21/2022 COMPARISON: 08/27/2018 CLINICAL HISTORY: 82 years old Female. ICD-10 CODE: Z890 AGE RELATED POSTMENOPAUSAL STATE Height: Weight: FRAX RISK QUESTIONS: Alcohol (3 or more units per day): NO Family History (Parent hip fracture): NO History of Fracture in Adulthood: YES LT FOREARM AGE 66 Secondary Osteoporosis: NO Rheumatoid Arthritis: YES Current Tobacco Use: NO RISK FACTORS HISTORY OF: Family History of Osteoporosis: NO Active: YES Diet low in dairy products/other sources of calcium: NO Postmenopausal woman: YES Lost more than 2 inches in height since high school: YES 4 INCHES SINCE HIGH SCHOOL Frequent falls: NO Poor Health: NO Hyperparathyroidism: NO Adrenal Insufficiency: NO MEDICATIONS: Additional Medications: YES COLITIS , WATER PILL , CALCIUM , JOINT SUPPLEMENTS FISH OIL , MULTI VIT EXAM MEASUREMENTS: Bone mineral densitometry was performed using the [employer] System. Bone mineral density as measured about the Lumbar spine is: ----- L1-L4(G/cm2): 1.235 T Score Values are as follows: ----- L1: -0.7 ----- L2: -0.4 ----- L3: 1.3 ----- L4: 1.2 ----- L1-L4: 0.5 Bone mineral density has: Decreased -1.4% since study of: 08/27/2018 Bone mineral density about the R hip (g/cm2): 0.903 Bone mineral density about the L hip (g/cm2): 0.921 T Score values are as follows: -----R Neck: -1.1 -----L Neck: -1.3 -----R Total: -0.8 -----L Total: -0.7 Bone mineral density has: Decreased -2.6% since study of: 08/27/2018 FRAX%s: The graph provided illustrates a 12.2% chance for a major osteoporotic fx and a 2.8% chance f or the hips probability for fx in 10 years time. IMPRESSION: Osteopenia (T Score between -2.5 and -1). There is slightly increased risk of fracture and the patient may be considered for treatment. Re-Screen 2-5 years. NOTE: T-SCORE=SD OF THE YOUNG ADULT MEAN.
--- NOTE | 2022-11-22 08:57 | MM ---
Reason for Exam: Screening (asymptomatic). Last screening mammogram was performed 12 month(s) ago. Patient History: Menarche at age 14. First Full-Term at age 24. Postmenopausal. Estrogen for 7 years from age 59 until age 66. Progesterone for 7 years from age 59 until age 66. 04/29/1997, Benign Excisional Biopsy on the left side. Risk Values: Silvana 5 year model risk: 1.7%. NCI Lifetime model risk: 2.5%. Prior Study Comparison: 09/15/2019 Bilateral Screening Mammogram, [facility]. 09/30/2020 Bilateral Screening Mammogram, [facility]. 11/16/2021 Bilateral Screening Mammogram, [facility]. Tissue Density: The breast tissue is almost entirely fat. Findings: Analyzed By CAD. There is no suspicious group of microcalcifications or new suspicious mass in either breast. Overall Assessment: Negative, BI-RAD 1 Management: Screening Mammogram of both breasts in 1 year. A clinical breast exam by your physician is recommended on an annual basis and results should be correlated with mammographic findings. [facility] will attempt to contact patient to return for supplemental views and ultrasound if indicated. Electronically signed and approved by: Krunal Felder DO
== END | disposition home or self-care (01) ==
LOC: RADMAMWWP 10:06
PROVIDERS: ATTEND Family Medicine
DX: Z12.31 Encounter for screening mammogram for malignant neoplasm of breast (principal); M85.89 Other specified disorders of bone density and structure, multiple sites; Z78.0 Asymptomatic menopausal state
CPT/HCPCS: 77063; 77067; 77080

== ENCOUNTER 2023-03-27 08:48 | Day surgery (SDC) | payer MEDICARE ==
[2023-03-25 13:24] VITALS: BMI 29.0
[~2023-03-27 08:48] MED LIST changes: -LIDOCAINE 1% (10MG/ML) FOR IV START INTRADERMA PRN
[2023-03-27 09:14] VITALS: RESP 16; TEMP 97
[2023-03-27] MEDS ORDERED: PROPOFOL 10 MG/ML 20 ML VIAL IV ONE (09:33)
--- NOTE | 2023-03-27 09:51 | P.PCN ---
Date of Procedure: 03/27/23 Procedure(s) Performed: BRIEF HISTORY: Patient is a 83-year-old pleasant white female scheduled for an elective colonoscopy as a part of surveillance of long-standing history of ulcerative colitis diagnosed in 1995. She remains in clinical condition. PROCEDURE PERFORMED: Colonoscopy with random biopsies. PREOPERATIVE DIAGNOSIS: Long-standing history of ulcerative colitis. IV sedation per Anesthesia. PROCEDURE: After informed consent was obtained, the patient, was brought into the endoscopy unit. IV sedation was administered by Anesthesia under continuous monitoring. Digital rectal examination was normal. Initially the Olympus CF-160 flexible video colonoscope was then inserted in the rectum, gradually advanced into the cecum without any difficulty. Careful examination was performed as the scope was gradually being withdrawn. Ileocecal valve and the appendiceal orifice were visualized and appeared normal. Prep was excellent. Mucosa of the cecum appeared normal. Ascending colon there was a 3 mm polyp that was removed by cold biopsy. Rest of the, ascending colon, transverse colon, descending colon, sigmoid colon, and rectum appeared normal. Random biopsies were done from the cecum to rectum at every 10 cm intervel. Scattered sigmoid diverticulosis seen. Retroflexion was performed in the rectum and no lesions were seen. The patient tolerated the procedure well. IMPRESSION: 3 mm ascending colon polyp status post cold biopsy Scattered sigmoid diverticulosis No evidence of active colitis RECOMMENDATIONS: Findings of this examination were discussed with the patient as well as a family. She was advised to follow with the biopsy results. If the biopsy reveals no evidence of dysplasia, she can have a repeat upper endoscopy in 2-3 years based on her overall medical condition.
[2023-03-27 10:22] VITALS: BP 116/74; PULSE 66
== END 2023-03-27 10:59 | disposition home or self-care (01) ==
LOC: ORWHC2ENDO 08:48
PROVIDERS: ATTEND Internal Medicine Gastroenterology
DX: D12.2 Benign neoplasm of ascending colon (principal); K57.30 Diverticulosis of large intestine without perforation or abscess without bleeding; I10 Essential (primary) hypertension; A15.0 Tuberculosis of lung; Z79.82 Long term (current) use of aspirin; Z79.899 Other long term (current) drug therapy; Z87.19 Personal history of other diseases of the digestive system; Z88.0 Allergy status to penicillin; Z88.8 Allergy status to other drugs, medicaments and biological substances; Z88.5 Allergy status to narcotic agent
CPT/HCPCS: 88305; 45380; J2704

== ENCOUNTER → 2023-10-28 | Outpatient (CLI) | payer MEDICARE ==
[2023-10-28 15:50] LABS: Chol/HDL Ratio 4.07 Ratio; LDL Cholesterol,Calculated 155.2 mg/dL (0.0-131.0)
== END | disposition home or self-care (01) ==
LOC: LABWHC1 10:25
PROVIDERS: ATTEND Family Medicine
DX: E78.5 Hyperlipidemia, unspecified (principal)
CPT/HCPCS: 36415; 80061

== ENCOUNTER → 2023-12-20 | Outpatient (CLI) | payer MEDICARE ==
--- NOTE | 2023-12-20 16:20 | MM ---
Reason for Exam: Screening (asymptomatic). Last mammogram was performed 1 year(s) and 1 month(s) ago. Patient History: Menarche at age 14. First Full-Term at age 24. Postmenopausal. Estrogen for 7 years from age 59 until age 66. Progesterone for 7 years from age 59 until age 66. 04/29/1997, Benign Excisional Biopsy on the left side. Risk Values: Silvana 5 year model risk: 1.7%. NCI Lifetime model risk: 2.2%. Prior Study Comparison: 09/30/2020 Bilateral Screening Mammogram, [facility]. 11/16/2021 Bilateral Screening Mammogram, [facility]. 11/21/2022 Bilateral MG 3D screening mammo w/cad, [facility]. Tissue Density: The breast tissue is almost entirely fat. Findings: Analyzed By CAD. There is no suspicious group of microcalcifications or new suspicious mass. Overall Assessment: Negative, BI-RAD 1 Management: Screening Mammogram of both breasts in [address] [facility] will attempt to contact patient to return for supplemental views and ultrasound if indicated. Patient should continue monthly self-breast exams. A clinical breast exam by your physician is recommended on an annual basis. This exam should not preclude additional follow-up of suspicious palpable abnormalities. Note on Silvana scores and lifetime risk: 1. A Silvana score greater than 3% is considered moderate risk. If this is the case, consider specialist referral to assess eligibility for a risk reducing agent. 2. If overall lifetime risk for the development of breast cancer is 20% or higher, the patient may qualify for future screening with alternating mammogram and breast MRI. Electronically signed and approved by: Krunal Felder DO
== END | disposition home or self-care (01) ==
LOC: RADMAMWWP 13:06
PROVIDERS: ATTEND Family Medicine
DX: Z12.31 Encounter for screening mammogram for malignant neoplasm of breast (principal); Z78.0 Asymptomatic menopausal state
CPT/HCPCS: 77063; 77067

== ENCOUNTER → 2024-03-06 | Day surgery (SDC) | payer MEDICARE ==
[~2024-03-06] MED LIST changes: -LACTATED RINGERS 1,000 ML IV SCH; +LIDOCAINE 1% INJ 10MG/ML (20 ML MDV) ONE; +MIDAZOLAM 2 MG/2 ML VIAL IV PRN; +PROPOFOL 10 MG/ML 20 ML VIAL IV ONE; +ROPIVACAINE 5 MG/ML 30 ML VIAL ONE; +SODIUM CHLORIDE 0.9% (PF) 10 ML VIAL ONE; +fentaNYL (PF) 50 MCG/ML 2 ML AMP IV PRN; +fentaNYL (PF) 50 MCG/ML 2 ML AMP ONE
[2024-03-06] MEDS: MIDAZOLAM 2 MG/2 ML VIAL IVP ONE (09:31)
[2024-03-06] MEDS: fentaNYL (PF) 50 MCG/ML 2 ML AMP IVP ONE (09:31)
[2024-03-06] MEDS: ONDANSETRON 4 MG/2 ML VIAL IVP ONE (10:02)
[2024-03-06] MEDS: DEXAMETHASONE SOD PHOSPHATE 4 MG/ML 1 ML VIAL IV ONE (10:02)
[2024-03-06] MEDS: LACTATED RINGERS 1,000 ML IV SCH (10:02)
[2024-03-06 12:57] VITALS: TEMP 97.1
[2024-03-06] MEDS: droPERidol 5 MG/2 ML VIAL IVP ONE (12:57)
--- NOTE | 2024-03-06 13:21 | P.ANPRN ---
Procedure Note - Anesthesia - Nerve Block Performed Right Popliteal Single Time Out Performed: Yes (929) Date of Procedure: 03/06/24 Procedure Start Time: : Procedure Stop Time: :34 Location of Patient: PreOp Indication: Acute Post-Operative Pain, Requested by Surgeon Specifically requested for management of pain by DrKika: Brandt Wheeler Sedation Type: Sedate with meaningful contact maintained Preparation: Sterile Prep Position: Supine Catheter: None Needle Types: Pajunk Needle Gauge: 21 Ultrasound used to visualize needle placement: Yes Ultrasound used to observe medication spread: Yes Injectate: 0.5% Ropivacaine (see comment for volume) (15cc +10cc nacl pf) Blood Aspirated: No Pain Paresthesia on Injection Noted: No Resistance on Injection: Normal Image Stored and Saved: Yes Events: Uneventful and Well Tolerated
--- NOTE | 2024-03-06 13:21 | P.ANPRN ---
Procedure Note - Anesthesia - Nerve Block Performed Right Adductor Canal Single Time Out Performed: Yes (929) Date of Procedure: 03/06/24 Procedure Start Time: 09:35 Procedure Stop Time: 09:37 Location of Patient: PreOp Indication: Acute Post-Operative Pain, Requested by Surgeon Specifically requested for management of pain by DrKika: Brandt Wheeler (') Sedation Type: Sedate with meaningful contact maintained Preparation: Sterile Prep Position: Supine Catheter: None Needle Types: Pajunk Needle Gauge: 21 Ultrasound used to visualize needle placement: Yes Ultrasound used to observe medication spread: Yes Injectate: 0.5% Ropivacaine (see comment for volume) (15cc +10cc nacl pf) Blood Aspirated: No Pain Paresthesia on Injection Noted: No Resistance on Injection: Normal Image Stored and Saved: Yes Events: Uneventful and Well Tolerated
--- NOTE | 2024-03-06 13:27 | P.OP ---
Date of Procedure: 03/06/24 Preoperative Diagnosis: 1. Hallux valgus left foot 2. Metatarsalgia left foot Postoperative Diagnosis: 1. Same 2. Same Procedure(s) Performed: 1. First metatarsal phalangeal joint arthrodesis left foot 2. Second and third metatarsal osteotomies left foot Implants: Arthrex MaxForce plate with locking and nonlocking screws Arthrex allograft Anesthesia: SHAKIRA Surgeon: Brandt Wheeler Estimated Blood Loss (ml): 10 Pathology: none sent Condition: stable Disposition: PACU Description of Procedure: Prior to the patient being brought to the operating room, anesthesia administered a nerve block on the surgical extremity. Then the patient was brought into the operating room and placed on table in the supine position. Timeout was taken to confirm correct patient identifiers, correct lateral surgery, and correct procedure. Once the staff in the room were in agreement with the timeout, the patient was induced and placed under general anesthesia. A well-padded tourniquet was placed on the ankle and then the foot was prepped and draped in the usual manner. The foot was exsanguinated and the tourniquet inflated to 250 mmHg. Attention was directed over the dorsal aspect of the first metatarsal phalangeal joint, where a linear incision was made between the long extensor tendon and the neurovascular structures. The incision was deepened down to the subcutaneous layer careful to identify, avoid, and retract any neurovascular structures and cauterize any bleeding vessels. Blunt dissection was continued through the subcutaneous layer down to the periosteum and capsule. A linear periosteal and capsular incision was made medial to the long extensor tendon. Those tissues were then sharply reflected off of the first metatarsal head and shaft as well as the base of the proximal phalanx. The soft tissue was released around the joint so that the joint could be mobilized and accessed. A guidewire was placed through the central aspect of the first metatarsal head parallel to the long access and within the medullary canal. Appropriate size reamers were used to shape the first metatarsal head. Then a concave reamer was inserted over the guidewire and used to remove the articular cartilage and subchondral bone. The wire was removed was used to aggressively fenestrate the head of the first metatarsal. The guidewire was then inserted at the central aspect of the articular surface of the base of the proximal phalanx. The wire was advanced parallel to the long access and within the medullary canal. The convex reamer was then used to remove the articular cartilage and subchondral bone. The guidewire was removed and used to fenestrate the surface. The wound was thoroughly irrigated with antibiotic saline. Arthrex Arthrocell was placed between the arthrodesis segments. A 0 bend first metatarsal phalangeal joint fusion plate was then positioned dorsally over the site. Temporary fixation was used to hold the plate in place. Fluoroscopy was used to check the placement of the plate as well as the joint alignment. Once both positions were satisfactory, a combination of locking and nonlocking screws were placed in the distal part of the plate into the proximal phalanx. The position of the joint and plate were checked again under fluoroscopy. Once both were satisfactory, a wire was placed in the base of the proximal phalanx and across the arthrodesis site to maintain the alignment. The offset drill guide was then placed in the compression slot of the plate. The guide was removed and then the compression device was inserted through the drill hole and engaged with the plate. The compression device was turned to further compress the joint. While holding in compression, another threaded olive wire was used to hold it in place. A drill hole through the proximal compression slot was then made and a nonlocking screw was inserted and tightened until it engaged the plate and provided further compression across the arthrodesis site. A nonlocking screw was then placed in the drill hole in the proximal aspect of the plate closest to the joint line. The final screw was a locking screw placed in the most proximal hole the plate. Final fluoroscopic imaging showed proper placement of all hardware, maintaining correction of the joint, and excellent compression across the arthrodesis site. The temporary fixation wire was removed and the joint thoroughly irrigated with antibiotic saline. The capsule and periosteal tissues were closed with 0 Vicryl. Subcu tissue closed with 4-0 Monocryl and skin closure done with 4-0 STRATAFIX in a running subcuticular manner. Then attention directed to the dorsal aspect of the second third metatarsals. Fluoroscopy was used to taryn the area of the neck of the metatarsals. Small incisions are made through the skin and bluntly dissected down to the neck of the second and third metatarsals.a 2.2 mm rotary bur was then inserted and used to create osteotomy in the second third metatarsal necks. The orientation of the osteotomies were from plantar proximal to dorsal distal. Once completed the capital fragments were shifted proximally to shorten the metatarsals and realigned the metatarsal phalangeal joints. Once completed there was improv ement alignment of the second and third digits at the metatarsal phalangeal joints. The incisions were irrigated and closed with 3-0 nylon. Dermal glue was applied over the first metatarsal phalangeal joint incision. Steri-Strips are placed across the same incision. Nonadherent gauze and a dry sterile dressing applied to the foot. The tourniquet was released and capillary refill return to all digits on the foot. Patient's placed in a well-padded, well molded plaster posterior mold/sugar tong splint. Ankle full were held in neutral position until the splint was dried. Then anesthesia was reversed and the patient was taken recovery with vital signs stable
[2024-03-06 14:21] VITALS: BP 138/74; PULSE 76
[2024-03-06 14:22] VITALS: RESP 18
== END | disposition home or self-care (01) ==
LOC: OR 08:35
PROVIDERS: ATTEND Podiatrist
DX: M20.12 Hallux valgus (acquired), left foot (principal); M77.42 Metatarsalgia, left foot; G89.18 Other acute postprocedural pain; I10 Essential (primary) hypertension; E78.5 Hyperlipidemia, unspecified; Z88.5 Allergy status to narcotic agent; Z88.0 Allergy status to penicillin; Z88.8 Allergy status to other drugs, medicaments and biological substances; Z79.899 Other long term (current) drug therapy; Z90.710 Acquired absence of both cervix and uterus
CPT/HCPCS: 64447; 64445; 84132; 28750; 28308 ×2; C1713; C1734; J2250; J1100; J0690; J2405; J2001; J3010; J2795; J2704; J1790

== ENCOUNTER → 2024-08-10 | Outpatient (CLI) | payer MEDICARE ==
[2024-08-10 15:26] LABS: ALT 16 U/L (8-44); AST 20 U/L (13-35); Albumin 4.1 g/dL (3.8-4.9); Albumin/Globulin Ratio 1.78 Ratio (1.60-3.17); Alkaline Phosphatase 85 U/L (41-126); BUN/Creat Ratio 27.83 Ratio (12.00-20.00); Blood Urea Nitrogen 16.7 mg/dL (9.0-27.0); Calcium 10.1 mg/dL (8.7-10.3); Carbon Dioxide 29.4 mmol/L (21.6-31.8); Chloride 104 mmol/L (96-109); Chol/HDL Ratio 4.37 Ratio; Globulin 2.3 g/dL (1.6-3.3); Glucose 104 mg/dL (70-110); LDL Cholesterol,Calculated 166.8 mg/dL (0.0-131.0); Potassium 3.8 mmol/L (3.5-5.5); Sodium 143 mmol/L (135-145); Total Bilirubin 0.4 mg/dL (0.3-1.2); Total Protein 6.4 g/dL (6.2-8.2)
== END | disposition home or self-care (01) ==
LOC: LABWHC1 08:03
PROVIDERS: ATTEND Internal Medicine Interventional Cardiology
DX: E78.2 Mixed hyperlipidemia (principal)
CPT/HCPCS: 36415; 80053; 80061

== ENCOUNTER → 2025-04-06 | Outpatient (CLI) | payer MEDICARE ==
--- NOTE | 2025-04-06 11:54 | BD ---
EXAMINATION TYPE: Axial Bone Density DATE OF EXAM: 04/06/2025 CLINICAL HISTORY: 85 years old Female. ICD-10 CODE: Z78.0 ASYMP [place] STATE , Additional History: Height: 63 Weight: 183 FRAX RISK QUESTIONS: Family History (Parent hip fracture): no History of Fracture in Adulthood: yes Secondary Osteoporosis: no Rheumatoid Arthritis: yes RISK FACTORS HISTORY OF: History of lt Wrist Fracture: yes When: age 66 Surgery to Spine/Hip(right/left)/Wrist (right/left): no MEDICATIONS: Thyroid Medications: no Osteoporosis Medications: no EXAM MEASUREMENTS: Bone mineral densitometry was performed using the [employer]. Bone mineral density as measured about the Lumbar spine is: ----- L1-L4(G/cm2): 1.211 T Score Values are as follows: ----- L1: -0.9 ----- L2: -0.6 ----- L3: 1.4 ----- L4: 0.8 ----- L1-L4: 0.3 Z Score Values are as follows: ----- L1: 0.5 ----- L2: 0.8 ----- L3: 2.7 ----- L4: 2.2 ----- L1-L4: 1.6 Bone mineral density has: Decreased -1.9% since study of: 11/21/2022 Bone mineral density about the R hip (g/cm2): 0.912 Bone mineral density about the L hip (g/cm2): 0.894 T Score values are as follows: -----R Neck: -1.5 -----L Neck: -1.3 -----R Total: -0.8 -----L Total: -0.9 Z Score values are as follows: -----R Neck: 0.5 -----L Neck: 0.7 -----R Total: 1.1 -----L Total: 0.9 Bone mineral density has: Decreased -1.0% since study of: 11/21/2022 FRAX%s: The graph provided illustrates a 18.5% chance for a major osteoporotic fx and a 4.3% chance f or the hips probability for fx in 10 years time. IMPRESSION: Osteopenia (T Score between -2.5 and -1) femoral neck level both hips remains present. There is slightly increased risk of fracture and the patient may be considered for treatment. Re-Screen 2-5 years. NOTE: T-SCORE=SD OF THE YOUNG ADULT MEAN. [facility], , 04/06/2025 11:52 AM
--- NOTE | 2025-04-06 12:10 | MM ---
Reason for Exam: Screening (asymptomatic). Last mammogram was performed 1 year(s) and 4 month(s) ago. Patient History: Menarche at age 14. First Full-Term at age 24. Postmenopausal. Estrogen for 7 years from age 59 until age 66. Progesterone for 7 years from age 59 until age 66. 04/29/1997, Benign Excisional Biopsy on the left side. Risk Values: Silvana 5 year model risk: 1.5%. NCI Lifetime model risk: 1.7%. Prior Study Comparison: 08/27/2018 Bilateral Screening Mammogram, [facility]. 09/15/2019 Bilateral Screening Mammogram, [facility]. 09/30/2020 Bilateral Screening Mammogram, [facility]. 11/16/2021 Bilateral Screening Mammogram, [facility]. 11/21/2022 Bilateral MG 3D screening mammo w/cad, [facility]. 12/20/2023 Bilateral MG 3D screening mammo w/cad, [facility]. Tissue Density: There are scattered areas of fibroglandular density. Findings: Analyzed By CAD. There is no suspicious group of microcalcifications or new suspicious mass in either breast. Overall Assessment: Negative, BI-RAD 1 Management: Screening Mammogram of both breasts in 1 year. . Patient should continue monthly self-breast exams. A clinical breast exam by your physician is recommended on an annual basis. This exam should not preclude additional follow-up of suspicious palpable abnormalities. Note on Silvana scores and lifetime risk: 1. A Silvana score greater than 3% is considered moderate risk. If this is the case, consider specialist referral to assess eligibility for a risk reducing agent. 2. If overall lifetime risk for the development of breast cancer is 20% or higher, the patient may qualify for future screening with alternating mammogram and breast MRI. [facility], , 04/06/2025 12:08 PM. Electronically signed and approved by: Jagjit Joshi M.D.
== END | disposition home or self-care (01) ==
LOC: RADMAMWWP 10:57
PROVIDERS: ATTEND Family Medicine
DX: Z12.31 Encounter for screening mammogram for malignant neoplasm of breast (principal); R92.323 Mammographic fibroglandular density, bilateral breasts; M85.89 Other specified disorders of bone density and structure, multiple sites; Z78.0 Asymptomatic menopausal state
CPT/HCPCS: 77063; 77067; 77080

== ENCOUNTER → 2025-06-23 | Outpatient (CLI) | payer MEDICARE ==
--- NOTE | 2025-06-23 13:56 | CT ---
CT left knee, CHANG protocol. CLINICAL INDICATION: Female, 85 years old with history of M21.062 VALGUS DEFORMITY M25.562 M17.12, Kn ee pain COMPARISON: None TECHNIQUE: Multiple axial images are obtained through the lower extremities without use of IV contras t material. The exam was performed according to the CHANG protocol FINDINGS: There is moderate narrowing, mild hypertrophic spurring and moderate subchondral sclerosis in the med ial compartment knee consistent with moderate osteoarthritis. There is mild narrowing and hypertrophi c spurring of the lateral and patellofemoral compartments consistent with mild osteoarthritis. There is no joint effusion. There is no fracture or focal intraosseous abnormality.. The hips are normal and symmetric bilaterally without fracture, dislocation or arthritic change. The ankles are normal and symmetrical without osteoarthritic change, fracture, dislocation or focal i ntraosseous abnormality. IMPRESSION: 1. Moderate osteoarthritis of the medial compartment knee. There is mild valgus deformity. 2. Mild osteoarthritis of the lateral and patellofemoral compartments 3. No significant osteoarthritis of the hips or ankles. 4. Total right knee prosthesis [facility], Workstation: [facility], 06/23/2025 1:54 PM
== END | disposition home or self-care (01) ==
LOC: RADCTMAIN 12:44
PROVIDERS: ATTEND Orthopaedic Surgery
DX: M17.12 Unilateral primary osteoarthritis, left knee (principal); M21.062 Valgus deformity, not elsewhere classified, left knee; Z96.651 Presence of right artificial knee joint